=== PATIENT | female | born 1950 | race Caucasian/White ===

== ENCOUNTER 2017-04-26 16:45 | Emergency (ER) | payer MEDICARE, OTHER ==
[~2017-04-26] VITALS: Ht 160 cm; Wt 59.0 kg
[~2017-04-26 16:45] MED LIST: CALCTAB80 PO; GUAISOL PO; LEVO100T60 PO; SIMV5TAB32 PO; TAB-TAB PO
[2017-04-26 17:04] VITALS: BP 147/71; PULSE 90; RESP 16; TEMP 99.3; O2SAT 95
--- NOTE | 2017-04-26 17:28 | PD ---
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 Patient states that she took a shower and noticed a small soft tissue mass protruding from the vagina. Patient denies any pain. Patient denies any nausea vomiting diarrhea. Patient denies any dysuria frequency. PFSH Past Medical History High Cholesterol: Yes Diminished Hearing: No Immunizations Current: No Thyroid Disease: Yes (HYPOTHYROIDISM) ?: Not Menopausal: Yes : 2 Para: 2 Tubal Ligation: Yes Past Surgical History Abdominal Surgery: Yes (BILAT INGUINAL HERNIA REPAIR) Eye Surgery: Yes (RT EYE-LAZY EYE REPAIR) Other Surgery: Yes (HERNIA) Social History Alcohol Use: No Tobacco Use: No Substance Use: No Allergies-Medications (Allergen,Severity, Reaction): Coded Allergies: penicillin G (Unverified Allergy, Severe, Hives, 04/26/17) pt states does not have a allergy to this medicaiton . Jfoley 04/26/17 Reported Meds & Prescriptions Reported Meds & Active Scripts Active Reported Claritin (Loratadine) 10 Mg Cap 10 Mg PO DAILY Levothyroxine (Levothyroxine Sodium) 100 Mcg Tab 100 Mcg PO DAILY Pravastatin 20 Mg Tab 20 Mg PO DAILY Myrbetriq (Mirabegron) 25 Mg Tab 25 Mg PO DAILY Review of Systems General / Constitutional: No: Fever Eyes: No: Visual changes HENT: No: Headaches Cardiovascular: No: Chest Pain or Discomfort Respiratory: No: Shortness of Breath Gastrointestinal: No: Abdominal Pain Genitourinary: No: Dysuria Musculoskeletal: No: Pain Skin: No Rash Neurologic: No: Weakness Psychiatric: No: Depression Endocrine: No: Polydipsia Hematologic/Lymphatic: No: Easy Bruising Physical Exam Narrative GENERAL: Well-nourished, well-developed patient. SKIN: Focused skin assessment warm/dry. HEAD: Normocephalic. EYES: No scleral icterus. No injection or drainage. NECK: Supple, trachea midline. No JVD or lymphadenopathy. CARDIOVASCULAR: Regular rate and rhythm without murmurs, gallops, or rubs. RESPIRATORY: Breath sounds equal bilaterally. No accessory muscle use. GASTROINTESTINAL: Abdomen soft, non-tender, nondistended. MUSCULOSKELETAL: No cyanosis, or edema. BACK: Nontender without obvious deformity. No CVA tenderness. 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 Nontender palpation. No discharge. No bleeding. No mass. Data Data Last Documented VS Vital Signs Date Time Temp Pulse Resp B/P (MAP) Pulse Ox O2 Delivery O2 Flow Rate FiO2 04/26/17 17:04 99.3 90 16 147/71 (96) 95 Orders Orders Ed Discharge Order (04/26/17 17:29) MDM Medical Decision Making Medical Screen Exam Complete: Yes Emergency Medical Condition: Yes Differential Diagnosis Differential diagnosis including vaginal prolapse, uterine prolapse. Narrative Course 66-year-old female with soft tissue mass protruding from the vagina. Diagnosis Primary Impression: Vaginal prolapse without uterine prolapse Patient Instructions: General Instructions Additional Instructions: Advised patient to follow-up with bulb packer. Med/Other Pt SpecificInfo: No Change to Meds Disposition: 01 DISCHARGE HOME Condition: Stable Misha Maria MD Apr 26, 2017 17:28
[2017-04-26] MEDS ORDERED: PRAV20TA2 PO (17:39)
[2017-04-26] MEDS ORDERED: CLAR10CA3 PO (17:39)
[2017-04-26] MEDS ORDERED: LEVO100T5 PO (17:39)
[2017-04-26] MEDS ORDERED: MIRA25TA PO (17:39)
== END 2017-04-26 18:09 | disposition home or self-care (01) ==
LOC: PHED 16:45
DX: N81.6 Rectocele (principal); E03.9 Hypothyroidism, unspecified; Z88.0 Allergy status to penicillin
CPT/HCPCS: 99284